=== PATIENT | male | born 1955 | race Caucasian/White ===

== ENCOUNTER 2019-08-18 12:06 | Emergency (ER) | payer SELFPAY ==
[2019-08-18 12:07] VITALS: BP 117/55; PULSE 83; RESP 18; TEMP 36.3; O2SAT 96; BMI 25.1
--- NOTE | 2019-08-18 12:18 | RAD_ITS ---
STUDY: X-RAY - LEFT WRIST REASON FOR EXAM: Male, 64 years old. FALL FROM SCAPHOLDING, DEFORMITY TECHNIQUE: 3 view(s) of the wrist were obtained. COMPARISON: None. FINDINGS: Is a comminuted fracture of the distal radial metaphysis with dorsal facing of the radial carpal joint. Normal radiocarpal articulation. Normal distal radioulnar articulation. Normal carpal bones. Normal carpal articulations. Normal carpometacarpal articulation of the thumb. Normal second through fifth carpometacarpal articulations. Normal visualized metacarpal bones. Soft tissue swelling. RAD/Wrist min 3 Views IMPRESSION: Comment fracture of the distal radial metaphysis with dorsal facing of the distal radial carpal joint. Electronically Signed: Manuel Montiel, at 12:55 EDT , Service support ,
--- NOTE | 2019-08-18 12:18 | ED.VIS.FALL ---
History of Present Illness Chief Complaint: Upper Extremity Injury Informant: Patient, Significant Other Occurred: Today Mechanism/Context: - - fell off scaffolding; the aluminum plank tilted w/ one of his steps, causing him to fall off basically prone, his left hand hitting first w/ outstretched hand Fall from Height (ft): 5 Usually ambulates: Without assistance Location: left wrist Quality of Pain: Aching Current Severity: Mild Maximum Severity: Moderate Worsened by: moving Relieved by: remaining still Associated Symptoms: Negative for: Parasthesias, Weakness, Loss of function, Inability to ambulate, Loss of consciousness, Amnesia Narrative: bumped right cheek, no numbness, diplopia, headache, n/v. no chest pain, sob, abd pain. RHD. ambulatory after fall, drove himself home. Past Medical History - Allergies and Home Meds Allergies/Adverse Reactions: Allergies No Known Allergies Allergy (Verified 08/18/19 12:09) Primary Care Physician: Desiree Chu DO [STAFF PHYSICIAN] - (within next 1-2 weeks) Past Medical History: None Lives: Spouse/ Significant Other Smoking Status: Current every day smoker Review of Systems General: Denies: Chills, Fever, Sweats Eyes: Denies: Visual changes - bilaterally, Diplopia ENT: Denies: Rhinorrhea, Sore throat Cardiovascular: Denies: Chest pain, Palpitations Respiratory: Denies: Dyspnea, Cough, Dyspnea on exertion Gastrointestinal: Denies: Abdominal pain, Nausea, Vomiting, Diarrhea, Melena, Hematochezia Genitourinary: Denies: Dysuria, Hematuria, Frequency Musculoskeletal: Reports: Swelling - local at left wrist, Extremity Pain. Denies: Neck pain, Back pain Skin: Denies: Rash, Wounds Neurological: Denies: Headache, Weakness, Numbness Physical Exam Vital Signs/Narrative: Vital Signs Temp Pulse Resp BP Pulse Ox 08/18/19 12:07 97.3 F L 83 18 117/55 L 96 Inital Vital Signs reviewed: Yes General: Well nourished, Well developed, - - NAD Head: Normocephalic, Atraumatic Eyes: Perrl, EOMI ENT: TM's clear, No hemotympanum or drainage, - - small NT contusion right cheek, no bony maxilla or zygomatic tenderness, no infraorbital hypoesthesia, no malocclusion of jaw.. Negative for: Otorrhea, Nasal trauma Neck: Nontender, Full ROM. Negative for: Spinal Tenderness Cardiovascular: Regular rate, Regular rhythm, No murmurs Respiratory: No distress, CTA bilaterally, Chest nontender - w/ ribcage lateral compression Abdomen: Soft, Nontender, Nondistended, Normal bowel sounds Back: Nontender, - - FROM Extremeties: Good range of motion of the left wrist, limited at extremes of extension and flexion. Tenderness at the radial aspect of the carpus, overlying the scaphoid, however it is very mild. Minimal tenderness at the distal radius. No tenderness elsewhere in the hand or wrist including the ulna. No tenderness at the elbow, shoulder, clavicles. Full range of motion of all the joints. Skin: Normal color, No rash, Trauma - contusion right cheek, left wrist. skin intact. Neurological: Alert, Oriented x3, Cranial nerves II-XII grossly intact, Normal Strength, Normal Sensation, Normal Gait, - - GCS 15 Psychological: Normal affect, Normal Mood Diagnostic/Tx/Re-eval Clinical Impression(s) from Imaging Studies Wrist X-Ray 08/18/19 12:18 IMPRESSION: Comment fracture of the distal radial metaphysis with dorsal facing of the distal radial carpal joint. Electronically Signed: Manuel Montiel, at 12:55 EDT , Service support , - Medical Decision Making With his distal radius fracture that is displaced, he requires reduction. I discussed that with the patient he consents to hematoma block, closed reduction, and splinting which all was performed. Postreduction films show improvement. He states he can tell it is better. He was splinted in a bit of volar flexion, and is neurovascularly intact distally. I do not think he requires any head or facial imaging given his lack of symptoms of a head injury. Given appropriate follow-up and prescription for pain medication to use as needed. Discussed case and radiography with Dr. Chu, in agreement. Procedures - Upper Extremity Splints Upper Extremity Splint: Orthoglass, - - Short arm AP splint Splint Fabrication: Fabricated Location: Left - Neurovascularly intact distally after placement Procedure(s): 1 --hematoma block: After local prepped with isopropanol, a small amount of 1% lidocaine was placed subcutaneously with a small gauge needle, followed by the rest of 8 cc placed with an 18-gauge needle into the fracture site from a dorsal approach after aspirating a small amount of blood. Tolerated well with no complications. 2 --closed reduction left displaced closed wrist fracture: With manual reduction using an assistant professor of biochemistry to hold posterior traction on the elbow, the distal radius fracture was manually reduced. The deformity appeared to be resolved, and there was crepitance at the fracture site associated with a reduction. The piece was unstable and had to be held w/ dorsal pressure to prevent it falling off, which was associated w/ crepitance. Neurovascularly intact distally after reduction. XR postreduction shows improvement, but not anatomic alignment. It is in within reasonable limits to follow up with in splint, especially given instability. ED Disposition - Plan for ED Patient: Disposition: Home or Assisted Living Diagnosis: Closed traumatic displaced fracture of distal end of left radius, Accidental fall from scaffolding, Facial contusion Instructions: ED Forearm Fracture with Reduction, ED Splint Care Fiberglass Prescriptions: Hydrocodone Bitart/Apap 5-325 [[place] 5MG-325MG] 1 tab PO Q4H PRN PRN 2 Days #10 tab PRN Reason: Pain Prescription Printed Referrals: Desiree Chu DO [STAFF PHYSICIAN] - (within next 1-2 weeks)
--- NOTE | 2019-08-18 15:20 | RAD_ITS ---
STUDY: X-RAY - LEFT WRIST REASON FOR EXAM: Male, 64 years old. Post reduction. TECHNIQUE: AP and lateral view(s) of the wrist were obtained. COMPARISON: Comparison is made with prior examination done earlier in the day. FINDINGS: Persistent dorsal facing of the distal radiocarpal joint. Normal radiocarpal articulation. Normal distal radioulnar articulation. Normal carpal bones. Normal carpal articulations. RAD/Wrist 2 Views IMPRESSION: Persistent dorsal facing of the distal radial carpal joint. Electronically Signed: Manuel Montiel, at 15:45 EDT , Service support ,
[2019-08-18 15:30] VITALS: PULSE 60; RESP 18
[2019-08-18 16:03] VITALS: RESP 19
== END 2019-08-18 16:03 | disposition home or self-care (01) ==
PROVIDERS: Emergency Provider Emergency Medicine
DX: S52.502A Unspecified fracture of the lower end of left radius, initial encounter for closed fracture (principal); S00.83XA Contusion of other part of head, initial encounter; W12.XXXA Fall on and from scaffolding, initial encounter; Y93.9 Activity, unspecified; Y92.9 Unspecified place or not applicable; Y99.9 Unspecified external cause status; F17.200 Nicotine dependence, unspecified, uncomplicated
CPT/HCPCS: 25605; 73100; 73110; 99282

== ENCOUNTER → 2019-08-19 15:38 | Outpatient (CLI) | payer SELFPAY ==
[2019-08-19 14:04] VITALS: BMI 25.1
--- NOTE | 2019-08-19 15:40 | RAD_ITS ---
STUDY: X-RAY - LEFT WRIST REASON FOR EXAM: Male, 64 years old. Fracture. TECHNIQUE: 3 view(s) of the wrist were obtained. COMPARISON: August 18, 2019 FINDINGS: Casting material obscures anatomic detail. There is a comminuted fracture of the distal radial metaphysis. Normal visualized distal radius ulna. Normal radiocarpal articulation. Normal distal radioulnar articulation. Normal carpal bones. Normal carpal articulations. Normal carpometacarpal articulation of the thumb. Normal second through fifth carpometacarpal articulations. Normal visualized metacarpal bones. The soft tissue structures are unremarkable. RAD/Wrist min 3 Views IMPRESSION: Distal radial fracture. Electronically Signed: Salina Nascimento MD at 20:33 EDT Tel , Service support ,
== END ==
LOC: HPRAD 15:40
PROVIDERS: Referring Provider Physician Assistant; Visit Provider Physician Assistant
DX: S52.502A Unspecified fracture of the lower end of left radius, initial encounter for closed fracture (principal)
CPT/HCPCS: 73110

== ENCOUNTER → 2019-08-26 10:20 | Outpatient (CLI) | payer SELFPAY ==
[2019-08-19 14:04] VITALS: BMI 25.1
--- NOTE | 2019-08-26 10:20 | RAD_ITS ---
STUDY: X-RAY - LEFT WRIST REASON FOR EXAM: Male, 64 years old. Pain, known fracture TECHNIQUE: 3 view(s) of the wrist were obtained. COMPARISON: 08/19/2019 FINDINGS: Previously described fracture in the distal radial metaphysis is again noted. There has been closed reduction, and placement of fiberglass cast. Alignment at the fracture site is anatomic, there has been interval healing since the previous study but complete osseous union has yet to occur. No new acute finding. RAD/Wrist min 3 Views IMPRESSION: Anatomic alignment of a previously noted fracture in the distal radius. There has been interval healing since the previous study, follow-up recommended to ensure complete osseous union Electronically Signed: Syed Oconnell MD at 17:16 EDT , Service support ,
== END ==
LOC: HPRAD 10:20
PROVIDERS: Referring Provider Physician Assistant; Visit Provider Physician Assistant
DX: S52.502A Unspecified fracture of the lower end of left radius, initial encounter for closed fracture (principal)
CPT/HCPCS: 73110

== ENCOUNTER → 2019-09-02 12:37 | Outpatient (CLI) | payer SELFPAY ==
[2019-08-26 10:20] VITALS: BMI 25.1
--- NOTE | 2019-09-02 12:38 | RAD_ITS ---
STUDY: X-RAY - LEFT WRIST REASON FOR EXAM: Male, 64 years old. FX F/U TECHNIQUE: 3 view(s) of the wrist were obtained. COMPARISON: None. FINDINGS: Healing nondisplaced transverse fracture the distal metaphysis of the radius. Normal radiocarpal articulation. Normal distal radioulnar articulation. Normal carpal bones. Normal carpal articulations. Normal carpometacarpal articulation of the thumb. Normal second through fifth carpometacarpal articulations. Normal visualized metacarpal bones. Fiberglas cast a posterior soft tissue and bony detail. RAD/Wrist min 3 Views IMPRESSION: Healing nondisplaced transverse fracture the distal metaphysis of the radius. Electronically Signed: Sami Moran MD at 10:01 EDT Tel , Service support ,
== END ==
LOC: HPRAD 12:38
PROVIDERS: Referring Provider Orthopaedic Surgery; Visit Provider Orthopaedic Surgery
DX: S52.502A Unspecified fracture of the lower end of left radius, initial encounter for closed fracture (principal); X58.XXXA Exposure to other specified factors, initial encounter; Y93.9 Activity, unspecified; Y92.9 Unspecified place or not applicable; Y99.9 Unspecified external cause status
CPT/HCPCS: 73110

== ENCOUNTER → 2019-09-30 10:01 | Outpatient (CLI) | payer SELFPAY ==
[2019-09-02 12:52] VITALS: BMI 25.1
--- NOTE | 2019-09-30 10:02 | RAD_ITS ---
STUDY: X-RAY - LEFT WRIST REASON FOR EXAM: Male, 64 years old. FOLLOW UP WRIST FX 1 MONTH TECHNIQUE: 3 view(s) of the wrist were obtained. COMPARISON: 09/02/2019 FINDINGS: Previously noted fiberglass cast has been removed. Little significant healing has occurred in the previously described slightly impacted fracture in the distal metaphysis of the radius. Fracture lucency and cortical disruption still clearly noted. Because of the impacted nature of the fracture there is a slightly positive ulnar variance. No other demonstrated fracture, joint spaces are well preserved. Normal visualized distal ulna. Normal radiocarpal articulation. Normal carpal bones. Normal carpal articulations. Normal carpometacarpal articulation of the thumb. Normal second through fifth carpometacarpal articulations. Normal visualized metacarpal bones. The soft tissue structures are unremarkable. RAD/Wrist min 3 Views IMPRESSION: Little significant healing has occurred in the previously noted slightly impacted distal radial fracture. This suggests either nonunion or perhaps reinjury Slightly positive ulnar variance No new fracture or joint space abnormality Electronically Signed: Syed Oconnell MD at 10:47 EDT , Service support ,
== END ==
LOC: HPRAD 10:02
PROVIDERS: Referring Provider Physician Assistant; Visit Provider Physician Assistant
DX: S52.552D Other extraarticular fracture of lower end of left radius, subsequent encounter for closed fracture with routine healing (principal); X58.XXXD Exposure to other specified factors, subsequent encounter
CPT/HCPCS: 73110